=== PATIENT | male | born 1950 | race African-American/Black ===

== ENCOUNTER 2016-10-22 09:35 | Day surgery (SDC) | payer OTHER ==
[2016-10-22] MEDS ORDERED: TETRACAINE 0.5% OPHTH 1 DOSE AFFEYE ONE ×5 (10:45→14:03)
[2016-10-22] MEDS ORDERED: VIGAMOX 0.5% OPHTH 1 DOSE AFFEYE ONE ×6 (10:46→14:24)
[2016-10-22] MEDS ORDERED: NS 500 ML IV 500 ML IV ONE (10:51)
[2016-10-22] MEDS ORDERED: PROLENSA OPHTH 1 DOSE AFFEYE ONE (10:57)
[2016-10-22] MEDS ORDERED: ALPHAGAN-P OPHTH 1 DOSE AFFEYE ONE (10:58)
[2016-10-22] MEDS ORDERED: AK-DILATE 2.5% OPHTH 1 DOSE OP ONE ×3 (11:00→11:05)
[2016-10-22] MEDS ORDERED: CYCLOGYL 1% OPHTH 1 DOSE OP ONE ×3 (11:00→11:05)
[2016-10-22] MEDS ORDERED: MYDRIACIL OPHTH 1 DOSE AFFEYE ONE ×3 (11:00→11:05)
[2016-10-22] MEDS ORDERED: XYLOCAINE-MPF 1% IJ ONE ×2 (13:38→14:03)
[2016-10-22] MEDS ORDERED: BETADINE OPHTH SOLN 5% EACHEYE ONE ×2 (13:38→13:50)
[2016-10-22] MEDS ORDERED: DUOVISC IO ONE ×2 (13:38→14:03)
[2016-10-22] MEDS ORDERED: ADRENALINE CHL INJ IJ ONE ×2 (13:38→14:03)
[2016-10-22] MEDS ORDERED: BSS OPHTH (PLAIN) 500 ML with VANCOMYCIN HCL 500 MG VIAL 25 MG, ADRENALINE CHL INJ 1 MG IR ONE ×6 (13:39)
[2016-10-22] MEDS ORDERED: VISCOAT 0.5 ML IO ONE (14:12)
[2016-10-22 15:42] VITALS: BP 155/64
== END 2016-10-22 14:50 | disposition home or self-care (01) ==
LOC: SURG1 09:35
PROVIDERS: ATTEND Ophthalmology
PROC: 08RK3JZ Replacement of Left Lens with Synthetic Substitute, Percutaneous Approach (ICD-10-PCS; principal; 2016-10-22 21:00)
PROC: 08DK3ZZ Extraction of Left Lens, Percutaneous Approach (ICD-10-PCS; principal; 2016-10-22 21:00)
DX: H25.12 Age-related nuclear cataract, left eye (principal); H25.042 Posterior subcapsular polar age-related cataract, left eye; H52.222 Regular astigmatism, left eye
CPT/HCPCS: A4217; J0170; J3370

== ENCOUNTER 2016-11-05 07:40 | Day surgery (SDC) | payer OTHER ==
[2016-11-05] MEDS ORDERED: TETRACAINE 0.5% OPHTH 1 DOSE AFFEYE ONE ×3 (08:16→11:38)
[2016-11-05] MEDS ORDERED: VIGAMOX 0.5% OPHTH 1 DOSE AFFEYE ONE ×5 (08:17→12:13)
[2016-11-05] MEDS ORDERED: NS 500 ML IV 500 ML IV ONE (08:23)
[2016-11-05] MEDS ORDERED: PROLENSA OPHTH 1 DOSE AFFEYE ONE (08:28)
[2016-11-05] MEDS ORDERED: ALPHAGAN-P OPHTH 1 DOSE AFFEYE ONE (08:29)
[2016-11-05] MEDS ORDERED: CYCLOGYL 1% OPHTH 1 DOSE OP ONE ×4 (08:30→08:33)
[2016-11-05] MEDS ORDERED: AK-DILATE 2.5% OPHTH 1 DOSE OP ONE ×4 (08:30→08:33)
[2016-11-05] MEDS ORDERED: MYDRIACIL OPHTH 1 DOSE AFFEYE ONE ×3 (08:31→08:33)
[2016-11-05] MEDS ORDERED: BETADINE OPHTH SOLN 5% EACHEYE ONE (11:38)
[2016-11-05] MEDS ORDERED: XYLOCAINE-MPF 1% IJ ONE ×2 (11:43→11:53)
[2016-11-05] MEDS ORDERED: DUOVISC IO ONE ×2 (11:43→11:53)
[2016-11-05] MEDS ORDERED: ADRENALINE CHL INJ IJ ONE ×2 (11:43→11:53)
[2016-11-05] MEDS ORDERED: BSS OPHTH (PLAIN) 500 ML with VANCOMYCIN HCL 500 MG VIAL 25 MG, ADRENALINE CHL INJ 1 MG IR ONE ×6 (11:45)
[2016-11-05] MEDS ORDERED: VISCOAT 0.5 ML IO ONE (12:00)
[2016-11-05 13:14] VITALS: BP 149/75
== END 2016-11-05 12:15 | disposition home or self-care (01) ==
LOC: SURG1 07:40
PROVIDERS: ATTEND Ophthalmology
PROC: 08DJ3ZZ Extraction of Right Lens, Percutaneous Approach (ICD-10-PCS; principal; 2016-11-05 11:30)
PROC: 08RJ3JZ Replacement of Right Lens with Synthetic Substitute, Percutaneous Approach (ICD-10-PCS; principal; 2016-11-05 11:30)
DX: H25.11 Age-related nuclear cataract, right eye (principal); H25.041 Posterior subcapsular polar age-related cataract, right eye
CPT/HCPCS: A4217; J0170; J3370